=== PATIENT | male | born 1965 | race African-American/Black ===

== ENCOUNTER 2018-11-21 13:58 | Inpatient (IN) | payer BC ==
[2018-11-21] MEDS ORDERED: metroNIDAZOLE 500 MG/100 ML BAG ONE (15:39)
[2018-11-21 15:51] LABS: Hemoglobin 5.1 g/dL (14.0-18.0); Mean Corpuscular Volume 96.9 fL (78.0-98.0); Mean Platelet Volume 11.6 fL (7.4-10.4); Platelet Count 66 thou/uL (130-400); RBC Distribution Width 20.5 % (11.5-14.5); Red Blood Cell (RBC) Count 1.66 mill/uL (4.70-6.10)
[2018-11-21 15:54] LABS: INR-International Normal Ratio 2.1; PTT 39.2 SEC (22.9-36.1); Prothrombin Time 23.6 SEC (12.0-14.7)
[2018-11-21 15:58] LABS: ALT (SGPT) 24 U/L (8-55); AST (SGOT) 103 U/L (5-34); Albumin 1.7 g/dL (3.5-5.0); Alkaline Phosphatase 185 U/L (40-150); Anion Gap 17 mmol/L (10-20); BUN (Urea Nitrogen) 53 mg/dL (8.4-25.7); Calc. Creatinine Clearance 0 mL/min (70-130); Carbon Dioxide 18 mmol/L (22-29); Chloride 111 mmol/L (98-107); Estimated GFR-MDRD 61; Globulin 4.6 g/dL (2.4-3.5); Glucose 99 mg/dL (70-105); Lipase 67 U/L (8-78); Potassium 4.1 mmol/L (3.5-5.1); Protein, Total 6.3 g/dL (6.0-8.3); Sodium 142 mmol/L (136-145)
[2018-11-21 16:11] LABS: #Lymphocytes 1.1 thou/uL (1.20-3.40); #Monocytes 0.5 thou/uL (0.11-0.59); #Neutrophils 5.3 thou/uL (1.40-6.50); %Basophils 0.4 % (0.0-1.0); %Eosinophils 0.1 % (0.0-10.0); %Lymphocytes 15.8 % (21.0-51.0); %Monocytes 7.7 % (0.0-10.0); Anisocytosis SLIGHT = 6-15 cells (100X) (0-5/hpf); Hypochromia MODERATE=16-30 cells (100X) (0-5/hpf); MDiff Complete? YES; Platelet Morphology Comment Appears Decreased
[2018-11-21 17:04] LABS: HBCM Index 0.06 S/CO (0-0.79); HBSAg Index 0.31 S/CO (0-0.99); Hep A IgM AB Non-Reactive (NonReactive); Hep A IgM S/CO 0.27 S/CO (0-0.79); Hep B Surf Ag Non-Reactive S/CO (NonReactive); Hep C IgG Ab Non-Reactive (NonReactive); Hep C Index 0.19 S/CO (0-0.79); Hepatitis B Core IgM Abs Non-Reactive (NonReactive)
--- NOTE | 2018-11-21 17:16 | ULT ---
RIGHT UPPER QUADRANT ULTRASOUND: Date: 11/21/18 INDICATION: History of abdominal pain. FINDINGS: There is cirrhotic morphology of the liver. No focal hepatic lesion is evident. The gallbladder is co ntracted. There is no sonographic Ornelas's sign reported. Common bile duct measured 1.6 mm. Hepatopet al flow is seen within the portal vein. Right kidney measures 10.1 cm in length without evidence of h ydronephrosis. Moderate ascites is seen throughout the stomach. There is fluid-filled and material-fi lled stomach seen within the left upper quadrant of the abdomen. Reportedly, the patient has been NPO for 24 hours. This may reflect a component of gastroparesis. IMPRESSION: 1. Cirrhotic morphology of the liver without evidence of focal hepatic lesion. 2. Moderate ascites. 3. Slightly distended stomach. With report of patient being NPO for 24 hours, findings may reflect s equelae of gastroparesis. POS: ANTWAN
--- NOTE | 2018-11-21 18:00 | PDOC.FPRHP ---
- History of Present Illness Chief Complaint: vomiting/diarrhea History of Present Illness: Mr. Quiñones presents to the ED today for n/v/d for the past 24 hours He reports frequent episodes of non-billious/bloody vomiting and diarrhea. no hematochezia or melena. Reports no sick contacts, prior episodes, or unusual consumption. He denies any fever, SOB, dizziness, syncope, or abdominal pain. In the past he has had abdominal swelling/fluid for which he takes lasix prn. He denies abnormal bruising or bleeding or history of infection. ED Course: 2u PRBCs RUQ GB US Hep panel, FOBT, coags, Lipase, CBC, UA/cx, trop, flu, LA, CMP, BCx DARYL reported as brown stool in rectal vault, no blood or masses. - Allergies/Adverse Reactions Allergies Allergy/AdvReac Type Severity Reaction Status Date / Time No Known Allergies Allergy Verified 11/21/18 23:50 - Home Medications Medication Instructions Recorded Confirmed Type Amlodipine [Norvasc] 5 mg PO DAILY 01/21/16 11/21/18 History Spironolactone [Aldactone] 100 mg PO DAILY PRN 01/21/16 11/21/18 History Cyanocobalamin (Vitamin B-12) 1,000 mcg PO DAILY PRN 11/21/18 11/21/18 History [Vitamin B-12] Ferrous Gluconate [Iron] 240 mg PO DAILY PRN 11/21/18 11/21/18 History - History PMHx: HTN PSHx: FHx: Social: - Review of Systems General: reports: weight/appetite/sleep changes, fatigue. denies: fever/chills Eyes: denies: eye pain, vision changes Respiratory: denies: cough, congestion, shortness of breath, exercise intolerance Cardiovascular: denies: chest pain, palpitation, edema Gastrointestinal: reports: nausea, vomiting, diarrhea. denies: constipation, abdominal pain, GI bleeding Genitourinary: denies: incontinence, dysuria Skin: denies: rashes, lesions Musculoskeletal: denies: pain, tenderness Neurological: denies: numbness, syncope - Vital signs BP: 101/67 HR: 126 RR: 18 Tmax: 98 Pox: 96% on RA Wt: 74kg - Physical Exam Constitutional: NAD, awake, alert and oriented HEENT: normocephalic and atraumatic, no scleral icterus, grossly normal vision, grossly normal hearing, other (dry MM) Neck: supple, trachea midline Chest: no-tender to palpation, no lesions Heart: normal S1/S2, no murmurs/rubs/gallops, pulses present, no edema, other ( tachycardic) Lungs: CTAB, no respiratory distress Abdomen: soft, non-tender, bowel sounds present, no hernias, other (distended, small fluid wave) Musculoskeletal: normal structure, normal tone Neurological: no focal deficit, CN II-XII intact Skin: no rash/lesions, good turgor Heme/Lymphatic: no unusual bruising or bleeding, no purpura, no petechia Psychiatric: normal mood and affect FMR H&P: Results - Labs Result Diagrams: 11/22/18 05:47 11/22/18 05:47 Lab results: WBC 7.0 thou/uL (4.8-10.8) 11/21/18 14:25 Hgb 5.1 g/dL (14.0-18.0) L* 11/21/18 14:25 Hct 16.1 % (42.0-52.0) L 11/21/18 14:25 MCV 96.9 fL (78.0-98.0) 11/21/18 14:25 Plt Count 66 thou/uL (130-400) L 11/21/18 14:25 Neutrophils % 76.0 % (42.0-75.0) H 11/21/18 14:25 Sodium 142 mmol/L (136-145) 11/21/18 14:25 Potassium 4.1 mmol/L (3.5-5.1) 11/21/18 14:25 Chloride 111 mmol/L (98-107) H 11/21/18 14:25 Carbon Dioxide 18 mmol/L (22-29) L 11/21/18 14:25 BUN 53 mg/dL (8.4-25.7) H 11/21/18 14:25 Creatinine 1.48 mg/dL (0.7-1.3) H 11/21/18 14:25 Glucose 99 mg/dL (70-105) 11/21/18 14:25 Lactic Acid 6.4 mmol/L (0.5-2.2) H* 11/21/18 14:25 Calcium 8.0 mg/dL (7.8-10.44) 11/21/18 14:25 Total Bilirubin 6.0 mg/dL (0.2-1.2) H 11/21/18 14:25 AST 103 U/L (5-34) H 11/21/18 14:25 ALT 24 U/L (8-55) 11/21/18 14:25 Alkaline Phosphatase 185 U/L (40-150) H 11/21/18 14:25 CK-MB (CK-2) 4.0 ng/mL (0-6.6) 11/21/18 14:25 Serum Total Protein 6.3 g/dL (6.0-8.3) 11/21/18 14:25 Albumin 1.7 g/dL (3.5-5.0) L 11/21/18 14:25 Lipase 67 U/L (8-78) 11/21/18 14:25 FMR H&P: A/P - Problem List (1) Normocytic anemia Current Visit: Yes Status: Acute Code(s): D64.9 - ANEMIA, UNSPECIFIED (2) Cirrhosis Current Visit: Yes Status: Acute Code(s): K74.60 - UNSPECIFIED CIRRHOSIS OF LIVER (3) Lactic acidosis Current Visit: Yes Status: Acute Code(s): E87.2 - ACIDOSIS (4) Elevated troponin Current Visit: Yes Status: Acute Code(s): R74.8 - ABNORMAL LEVELS OF OTHER SERUM ENZYMES (5) RON (acute kidney injury) Current Visit: Yes Status: Acute Code(s): N17.9 - ACUTE KIDNEY FAILURE, UNSPECIFIED (6) HTN (hypertension) Current Visit: Yes Status: Acute Code(s): I10 - ESSENTIAL (PRIMARY) HYPERTENSION - Plan Normocyctic anemia - GI bleed vs iron deficiency vs chronic disease - asymptomatic, hypotense and tachycardic, continued diarrhea - s/p 2u PRBCs in ED, repeat H&H pending, T&C additional 2u pending result - protonix 40mg IV - GI consult in AM Lactic Acidosis - repeat pending - s/p 2.2 L in ED, give additional L bolus RON - likely 2/2 to hypovolemia - monitor CMP Cirrhosis - Most likely alcohol induced, nodular liver appearence on US, elevated PT/PTT/ INR - negative serologies elevated troponin - most likely demand, downtrending HTN - hx of, hold anti-hypertensive meds - monitor vitals Code: full ppx: none Dispo: admit to IMCU for close monitoring, serial H&H, give PRBCs prn hb<7 FMR H&P: Upper Level - Pertinent history 53M with PMH of alcohol abuse, HTN presents for e valuation of diarrhea of 3 days. He states diarrhea exacerbated by food. His symptom associated with new abd distention and feeling of pressure. His symptom happens intermittently. He specifically denies blood in his stool, vomiting, abd pain, fever or chills, though he reported to ER he did have vomiting and abd pain. Lab in ER found elevated lactate acidosis of 6.4, new normocytic anemia - Hgb 5.1, positive FOBT, indeterminate trop of 0.04, possible RON vs CKD with Cr 1.48 /GFR 61, liver cirrhosis of US with AST 103, Alk phos 185, bili 6.0 and albumin 1.7. Serology for hep Bs antigen neg, hep c antibody neg. So far in ER, has received 30 ml/kg fluid resuscitation, cipro 40mg IV, flagyl 500 mg IV, and additional 1 L fluid. - Pertinent findings Vitals, BP 96/63, pulse 125, temp 97.8, resp 20, O2 96 on RA Gen: Alert, oriented, logical thoughts, not in acute distress HEENT: Normocephalic, hearing and vision grossly intact. Moist appearing mucosal membrane CV: RRR with no apparent m/g/r Resp: CTA bilat, unlabored breathing GI: Distended, soft, no guarding, rigidity or mass palpated. Normoactive bowel. Ext: 1+ pitting edema to mid leavitt. - Plan Date/Time: 11/21/18 6748 I, [He Ly], have evaluated this patient and agree with findings/plan as outlined by internal medicine hospitalist resident. Pertinent changes/additions are listed here. 1. Normocytic anemia secondary to suspected GI bleed - Hgb of 5.1. FOBT positive. Elevated BUN. Tachycardic and mild hypotension. Currently asymptomatic with no active bleeding. - Plan, transfusing 2 PRBC. Will remeasure H/H 4 hours post transfusion. - Will give additional 500 ml LR - Consult GI for possible scope and evaluation - DC abx. No evidence of variceal bleed at this time 2. Cirrhosis - Found incidentally on US. Associated with elevated AST/alk phos, elevated INR , elevated bili, low albumin and hx of alcohol abuse. Hepatitis A/B/C neg. - Plan, consult GI. Consider alcoholic hepatitis/cirrhosis at this time. - When patient GI bleed resolve, would recommend recheck of liver function labs. Shock liver may account for some liver derangement. 3. RON - No previous comparison. Elevated Cr at this time - Plan, fluid and blood resuscitation. Remeasure CMP after due with resuscitation. 4. Indeterminate trop - Not symptomatic at this time. Likely from acute blood loss leading to demand ischemia - Will trend trops. 5. Lactic acidosis - Elevated LA. Likely from poor perfusion with recent suspected blood loss. Do not suspect infection at this time. No fever, abd pain, wbc shift. - Will remeasure after resuscitation. Fluid and blood transfusion. 6. HTN - Chronic issue. Hold HTN meds at this time. Addendum - Attending - Attending Attestation Date/Time: 11/22/18 [id number] I personally evaluated the patient and discussed the management with Dr. Cid and team on 11/21. I agree with and repeated the History, Examination, Assessment and Plan documented above with any addition or exceptions noted below. NAD, resting comfortably and watching TV on my exam. Mentating well. Tachy, regular, 1+ edema. CTAB s w/r/r. BS+, NTTP, distended with what feels like a fluid wave. Labs and imaging reviewed. I believe likely chronic bleed, as no evidence of acute GI loss, with superimposed dehydration. Transfuse initial two units then repeat serial h&h. Volume resuscitate. Consider TTE. PPI BID. I do not feel indication for antibiotic ppx.
[2018-11-21 18:41] LABS: Troponin I 0.028 ng/mL (< 0.028)
[2018-11-21 19:40] LABS: Lactic Acid 8.7 mmol/L (0.5-2.2)
[2018-11-21 19:47] LABS: Troponin I 0.052 ng/mL (< 0.028)
[2018-11-21] MEDS ORDERED: Acetaminophen 325 MG TAB PO PRN (20:09)
[2018-11-21] MEDS ORDERED: Ondansetron ODT 4 MG TAB PO PRN (20:09)
[2018-11-21] MEDS ORDERED: Lactated Ringer's 1,000 ML IV SCH (20:09)
[2018-11-21] MEDS ORDERED: Ondansetron PF 4 MG/2 ML Vial IVP PRN (20:09)
[2018-11-21] MEDS ORDERED: Pantoprazole 40 MG VIAL ONE (20:39)
[2018-11-21] MEDS: Pantoprazole 40 MG VIAL IVP SCH (20:48)
[2018-11-21 22:46] LABS: ALT (SGPT) 22 U/L (8-55); AST (SGOT) 86 U/L (5-34); Albumin 1.4 g/dL (3.5-5.0); Alkaline Phosphatase 139 U/L (40-150); Anion Gap 12 mmol/L (10-20); BUN (Urea Nitrogen) 55 mg/dL (8.4-25.7); Bilirubin, Total 4.8 mg/dL (0.2-1.2); Calc. Creatinine Clearance 0 mL/min (70-130); Calcium 7.2 mg/dL (7.8-10.44); Carbon Dioxide 20 mmol/L (22-29); Chloride 115 mmol/L (98-107); Estimated GFR-MDRD 68; Globulin 3.4 g/dL (2.4-3.5); Glucose 120 mg/dL (70-105); Potassium 4.1 mmol/L (3.5-5.1); Protein, Total 4.8 g/dL (6.0-8.3); Sodium 143 mmol/L (136-145)
[2018-11-21 22:49] LABS: Hemoglobin 5.6 g/dL (14.0-18.0); Mean Corpuscular HGB CONC 31.9 g/dL (32.0-36.0); Mean Corpuscular Hemoglobin 30.7 pg (27.0-31.0); Mean Corpuscular Volume 96.4 fL (78.0-98.0); Mean Platelet Volume 11.3 fL (7.4-10.4); Platelet Count 41 thou/uL (130-400); RBC Distribution Width 17.6 % (11.5-14.5); Red Blood Cell (RBC) Count 1.83 mill/uL (4.70-6.10); White Blood Cell (WBC) Count 6.8 thou/uL (4.8-10.8)
[2018-11-21 23:07] LABS: #Monocytes 0.8 thou/uL (0.11-0.59); #Neutrophils 5.1 thou/uL (1.40-6.50); %Basophils 0.2 % (0.0-1.0); %Lymphocytes 14.2 % (21.0-51.0); %Monocytes 11.2 % (0.0-10.0); %Neutrophils 74.4 % (42.0-75.0); Anisocytosis SLIGHT = 6-15 cells (100X) (0-5/hpf); Hypochromia SLIGHT = 6-15 cells (100X) (0-5/hpf); MDiff Complete? YES; Platelet Morphology Comment Appears Decreased; Target Cells SLIGHT = 2-5 cells (100X) (0-1/hpf)
[2018-11-22] MEDS ORDERED: Cyanocobalamin (Vitamin B-12) 1,000 MCG TAB PO PRN (00:50)
[2018-11-22] MEDS ORDERED: Ferrous Gluconate 324 MG TAB PO PRN (00:50)
[2018-11-22 01:47] LABS: Hemoglobin 5.8 g/dL (14.0-18.0)
--- NOTE | 2018-11-22 05:56 | PDOC.FM ---
- Subjective Subjective: 53 yo male seen at bedside this AM. Patient reports that he doesn't feel as bad as yesterday. Patient is unaware of the severity of his disease process. He asks multiple times if he will be able to go home today. He is counseled that the only safe place for him at the current time is in the hospital. Patient is otherwise agreeable to plan. No other complaints. - Objective Vital Signs & Weight: Vital Signs (12 hours) Temp Pulse Pulse Resp BP BP Pulse Ox 11/22/18 05:49 99.2 F 11/22/18 03:19 99.8 F H 118 H 16 101/56 L 100 11/22/18 02:58 99.0 F 120 H 13 99/61 100 11/21/18 23:25 98.1 F Weight Weight 79.492 kg Most Recent Monitor Data Heart Rate from ECG 110 NIBP 104/66 NIBP BP-Mean 78 Respiration from ECG 17 SpO2 98 I&O: 11/20/18 11/21/18 11/22/18 06:59 06:59 06:59 Intake Total 510 Output Total 200 Balance 310 Result Diagrams: 11/22/18 05:47 11/22/18 05:47 Phys Exam - Physical Examination Constitutional: NAD HEENT: PERRLA, moist MMs, sclera anicteric Respiratory: no wheezing, clear to auscultation bilateral Cardiovascular: no significant murmur Tachycardia Gastrointestinal: soft, non-tender, positive bowel sounds Musculoskeletal: pulses present, edema present 1+ bilaterally Neurological: moves all 4 limbs Psychiatric: normal affect, A&O x 3 Skin: no rash Dx/Plan (1) Normocytic anemia Code(s): D64.9 - ANEMIA, UNSPECIFIED Status: Acute (2) Cirrhosis Code(s): K74.60 - UNSPECIFIED CIRRHOSIS OF LIVER Status: Acute (3) Lactic acidosis Code(s): E87.2 - ACIDOSIS Status: Acute (4) RON (acute kidney injury) Code(s): N17.9 - ACUTE KIDNEY FAILURE, UNSPECIFIED Status: Acute (5) Elevated troponin Code(s): R74.8 - ABNORMAL LEVELS OF OTHER SERUM ENZYMES Status: Acute (6) HTN (hypertension) Code(s): I10 - ESSENTIAL (PRIMARY) HYPERTENSION Status: Acute - Plan Plan: 1. Normocytic anemia secondary to suspected GI bleed - Hgb of 5.1 on admission. FOBT positive. Elevated BUN. Tachycardic and mild hypotension. Currently asymptomatic with no active bleeding. - Current only 3/3 units PRBC. Will remeasure H/H 4 hours post transfusion. - Given total of 4000 ml fluid resuscitation - ED consult GI for possible scope and evaluation 2. Cirrhosis - Found incidentally on US. Associated with elevated AST/alk phos, elevated INR , elevated bili, low albumin and hx of alcohol abuse. Hepatitis A/B/C neg. - Consult GI. Consider alcoholic hepatitis/cirrhosis at this time. - Hepatitis panel negative - Bilirubin 4.4 - AST/ALT 89/21 - INR 2.1 3. Thrombocytopenia - Likely secondary to above 4. RON - No known baseline - Fuid and blood resuscitation - Monitor - 1.31 this AM 5. Indeterminate trop - Not symptomatic at this time. Likely from acute blood loss leading to demand ischemia - Will trend trops 6. Lactic acidosis - Elevated LA. Likely from poor perfusion with recent suspected blood loss. Do not suspect infection at this time. No fever, abd pain, wbc shift. - Fluid and blood transfusion - 3rd value pending at this time 7. HTN - Hold HTN meds at this time. Disposition: Stable, will continue current plan of care and await GI recs. Addendum - Attending - Attending Attestation Date/Time: 11/22/18 0908 I personally evaluated the patient and discussed the management with Dr. Kirby I agree with the History, Examination, Assessment and Plan documented above with any addition or exceptions noted below. Acute GI bleed- probably secondary to upper GI bleed Acute on chronic anemia secondary to above Indeterminate troponin secondary to severe anemia Alcoholic cirrhosis Coagulopathy seconday to cirrhosis Thrombocytopenia probably secondary to hypersplenism -GI to see. Will start octreotide gtt and give a dose of Vit K. Transfuse and additional unit of PRBC.
[2018-11-22 06:03] LABS: Hemoglobin 6.5 g/dL (14.0-18.0)
[2018-11-22 06:21] LABS: Hemoglobin 6.4 g/dL (14.0-18.0); Mean Corpuscular HGB CONC 32.4 g/dL (32.0-36.0); Mean Corpuscular Hemoglobin 30.5 pg (27.0-31.0); Mean Corpuscular Volume 94.2 fL (78.0-98.0); Mean Platelet Volume 10.9 fL (7.4-10.4); Platelet Count 44 thou/uL (130-400); RBC Distribution Width 17.3 % (11.5-14.5); White Blood Cell (WBC) Count 9.5 thou/uL (4.8-10.8)
[2018-11-22 06:24] LABS: ALT (SGPT) 21 U/L (8-55); AST (SGOT) 89 U/L (5-34); Albumin 1.3 g/dL (3.5-5.0); Alkaline Phosphatase 132 U/L (40-150); Anion Gap 11 mmol/L (10-20); BUN (Urea Nitrogen) 62 mg/dL (8.4-25.7); Bilirubin, Total 4.4 mg/dL (0.2-1.2); Calc. Creatinine Clearance 75 mL/min (70-130); Calcium 7.1 mg/dL (7.8-10.44); Carbon Dioxide 20 mmol/L (22-29); Chloride 118 mmol/L (98-107); Estimated GFR-MDRD 70; Globulin 3.5 g/dL (2.4-3.5); Glucose 112 mg/dL (70-105); Protein, Total 4.8 g/dL (6.0-8.3); Sodium 145 mmol/L (136-145)
[2018-11-22 06:27] LABS: #Lymphocytes 1.6 thou/uL (1.20-3.40); #Monocytes 1.2 thou/uL (0.11-0.59); #Neutrophils 6.7 thou/uL (1.40-6.50); %Basophils 0.3 % (0.0-1.0); %Eosinophils 0.3 % (0.0-10.0); %Lymphocytes 16.7 % (21.0-51.0); %Monocytes 12.6 % (0.0-10.0); %Neutrophils 70.1 % (42.0-75.0); Anisocytosis SLIGHT = 6-15 cells (100X) (0-5/hpf); Band 5 % (5-11); Lymphocytes 14 % (21-51); MDiff Complete? YES; Monocytes 12 % (0-10); Neutrophil 69 % (42-75); Nucleated RBC 1 % (0); Platelet Morphology Comment Appears Decreased
[2018-11-22 08:39] LABS: CKMB 8.3 ng/mL (0-6.6)
[2018-11-22] MEDS ORDERED: Phytonadione 10 MG/ML AMP SLOW IVP SCH (09:15)
[2018-11-22] MEDS ORDERED: Octreotide Acetate 50 MCG/ML AMP SLOW IVP SCH (09:15)
[2018-11-22] MEDS ORDERED: Phytonadione 10 MG in Sodium Chloride 0.9% 50 ML IVPB SCH (09:30)
[2018-11-22] MEDS: Octreotide Acetate 1,250 MCG in Sodium Chloride 0.9% 250 ML 250 ML IVPB SCH (10:16)
[2018-11-22] MEDS: Pantoprazole 40 MG VIAL IVP SCH ×2 (10:17→20:28)
[2018-11-22 10:28] LABS: Hemoglobin 7.4 g/dL (14.0-18.0)
--- NOTE | 2018-11-22 14:36 | CON ---
DATE OF CONSULTATION: 11/22/2018 CHIEF COMPLAINT: Abdominal pain, nausea, vomiting, diarrhea. HISTORY OF PRESENT ILLNESS: Mr. Quiñones is a 53-year-old man with a history of alcoholic cirrhosis. He presented to the emergency room with a 2-day history of nausea and vomiting and diarrhea with multiple liquidy stools per day. He states that the stools were dark. Nursing reports that the stools here in the hospital had been black. He has had no bloody emesis. He reports vomiting some brown old food material early this morning. He has had some mild abdominal distention and vague pressure-type discomfort diffusely. His last drink of alcohol was this past Monday. He was found to have severe anemia and was given blood transfusion. GI was consulted to evaluate the anemia and cirrhosis. PAST MEDICAL HISTORY: 1. Alcoholic cirrhosis. Previously autoimmune markers did show an elevated F-actin antibody in January of 2017. Mitochondrial antibody was normal. Iron saturation was not elevated. He has got immunity to hepatitis A. Alpha-1 antitrypsin level was normal. Ceruloplasmin was not low. JEMMA was negative previously. He has had ascites associated with alcoholic hepatitis as well previously. 2. Anemia. He had labs drawn back in 2017 with his previous hospital stay and was found to have a hemoglobin of 5.5, and the patient could not be contacted afterwards to work that up more urgently. PAST SURGICAL HISTORY: Otherwise negative. FAMILY HISTORY: Negative for GI malignancy or cirrhosis. SOCIAL HISTORY: Has ongoing alcohol abuse. No drugs. Remote smoking history. ALLERGIES: NO KNOWN DRUG ALLERGIES. MEDICATIONS: Prior to admission, amlodipine, spironolactone, B12, ferrous gluconate. REVIEW OF SYSTEMS: Negative x10 systems reviewed except as stated in history of present illness. PHYSICAL EXAMINATION: VITAL SIGNS: Temperature 98.8, pulse 110, blood pressure 91/52. GENERAL: He is in no acute distress. He is alert and oriented x3. HEENT: Eyes have no scleral icterus. Oropharynx is clear without lesions. NECK: No cervical or supraclavicular lymphadenopathy. LUNGS: Clear to auscultation bilaterally. HEART: Tachycardic S1, S2. He has 2/6 systolic murmur at the right upper sternal border. ABDOMEN: Minimally distended, soft and nontender. Bowel sounds are present. EXTREMITIES : Trace lower extremity edema. NEUROLOGIC: He has no asterixis on neurological exam. LABORATORY DATA: White blood cell count 9.5, hemoglobin 7.4, platelets 44,000. He has received 2 units transfusion last night, another unit early this morning and he has received another one later this morning. I believe the current hemoglobin of 7.4 was after 3 units. His INR is 2.1. Creatinine 1.31, bilirubin 4.4, AST 89, ALT 21, alkaline phosphatase 132, albumin 1.3, TSH 2.19. Hepatitis C antibody was negative. Hepatitis B surface antigen is negative. IMPRESSION: 1. Decompensated alcoholic cirrhosis. His INR is elevated at 2.1. His platelets are low at 44,000. His bilirubin is elevated at 4.4. Creatinine is elevated at 1.31, albumin is extremely low at 1.3. He did have a mildly elevated F-actin antibody in the past. His globulin is 3.5. 2. Severe anemia, presenting with a hemoglobin of 5.1, status post 3 units transfusion with improvement in his hemoglobin to 7.4. On rectal exam today, he does have scant amount of black melenic appearing stool. 3. Ascites. He will need to be on spontaneous bacterial peritonitis prophylaxis with the possible gastrointestinal bleed. RECOMMENDATIONS: 1. We will plan upper endoscopy to evaluate for varices. 2. Start octreotide drip. 3. Continue proton pump inhibitor. 4. Transfuse as necessary. I would give him 1 pack of platelets at this point prior to endoscopy. 5. He has had chronic anemia in the past and if the upper endoscopy is negative, he will require lower endoscopy for further evaluation. 6. Alcohol cessation is advised. 7. Antibiotics for SBP prophylaxis. Job ID: [id number]
[2018-11-22] MEDS: cefTRIAXone\\ROCEPHIN 1 GM in Sodium Chloride 0.9% 100 ML IVPB SCH (15:06)
[2018-11-22 16:50] LABS: Hemoglobin 8.5 g/dL (14.0-18.0)
[2018-11-22] MEDS: GoLYTELY 4,000 ml Bottle PO SCH (20:19)
--- NOTE | 2018-11-23 01:08 | CON ---
DATE OF CONSULTATION: HISTORY OF PRESENT ILLNESS: Mr. Quiñones is a 53-year-old male, who very quickly admits that he was an extremely heavy drinker for many years. He presented with nausea, vomiting, and diarrhea. He has been transfused. He has no history of being told he had liver disease prior to this admission. He subsequently was admitted to the intermediate care unit. Reviewing Dr. Quiñones's notes, it appears that he has been worked up for cirrhosis in the past. He details the workup in his past medical history. He has also been noted in 2017 to have a hemoglobin as low as 5.5 g. He is a smoker, but does not drink now he says, although he admits he has had something to drink recently. It looks like he has been seen by Dr. Quiñones as an outpatient reviewing some of the medical records. FAMILY HISTORY: Negative for lung disease in early age. REVIEW OF SYSTEMS: Ten-point is otherwise negative. PHYSICAL EXAMINATION: GENERAL: He is in no distress, watching TV, lying flat in bed. VITAL SIGNS: Blood pressure 120/83, heart rate is 100, respiratory rate is 25, and oximetry is 96%. HEENT: Pupils are equal. Sclerae are icteric. Poor dentition. NECK: Supple. No lymphadenopathy. LUNGS: Clear. HEART: Regular rhythm. S1 and S2 are normal. ABDOMEN: Soft with exam findings consistent with fluid wave. EXTREMITIES: With 1+ pedal edema. LABORATORY DATA: Sodium 145, potassium 4, chloride 118, bicarb 20, BUN 62, creatinine 1.31, glucose 112, calcium 7.1, bilirubin is 4.4, AST is 89, ALT 21, albumin is 1.3, and total protein is 4.8. White count is 9.5, hemoglobin 6.4 this morning and 8.5 this afternoon after blood, and platelets 44,000. IMPRESSION: Cirrhosis secondary to heavy alcohol use with ascites, thrombocytopenia, and significant liver synthetic dysfunction as well as hyperbilirubinemia. Appears to be stable at this point in time. His prognosis is obviously quite poor. We will follow up with the other physicians caring for him. Job ID: [id number] This is a 50 minute consult with 50% of time spent coordinating care on unit MTDD
--- NOTE | 2018-11-23 06:02 | PDOC.FM ---
- Subjective Subjective: 53 yo male seen at bedside this AM. Patient states he had no acute events overnight, but didn't get much sleep. He states that he is ready to go home, but will wait to hear what other tests need to be completed. No other complaints. - Objective Vital Signs & Weight: Vital Signs (12 hours) Temp 11/23/18 04:00 98.9 F 11/23/18 00:00 99.0 F 11/22/18 19:35 98.4 F Weight Admit Weight 79.067 kg Weight 79.492 kg Most Recent Monitor Data Heart Rate from ECG 92 NIBP 106/78 NIBP BP-Mean 87 Respiration from ECG 14 SpO2 96 I&O: 11/21/18 11/22/18 11/23/18 06:59 06:59 06:59 Intake Total 510 350 Output Total 200 Balance 310 350 Result Diagrams: 11/23/18 09:04 11/23/18 09:04 Phys Exam - Physical Examination Constitutional: NAD HEENT: moist MMs Respiratory: no wheezing, clear to auscultation bilateral Cardiovascular: RRR, no significant murmur Gastrointestinal: soft, non-tender, no distention, positive bowel sounds Musculoskeletal: pulses present, edema present Neurological: non-focal, normal sensation, moves all 4 limbs Psychiatric: A&O x 3 Skin: no rash Dx/Plan (1) Normocytic anemia Code(s): D64.9 - ANEMIA, UNSPECIFIED Status: Chronic (2) Cirrhosis Code(s): K74.60 - UNSPECIFIED CIRRHOSIS OF LIVER Status: Chronic (3) Lactic acidosis Code(s): E87.2 - ACIDOSIS Status: Acute (4) RON (acute kidney injury) Code(s): N17.9 - ACUTE KIDNEY FAILURE, UNSPECIFIED Status: Acute (5) Elevated troponin Code(s): R74.8 - ABNORMAL LEVELS OF OTHER SERUM ENZYMES Status: Acute (6) HTN (hypertension) Code(s): I10 - ESSENTIAL (PRIMARY) HYPERTENSION Status: Chronic - Plan Plan: 1. Normocytic anemia secondary to suspected GI bleed - Hgb of 5.1 on admission. FOBT positive. Elevated BUN. Tachycardic and mild hypotension. Currently asymptomatic with no active bleeding. - Current given 4/6 units PRBC. - Given total of 4000 ml fluid resuscitation - Hgb this AM 8.6 - Dr. Quiñones, GI, recommends upper and lower endoscopy. 2. Cirrhosis - Found incidentally on US. Associated with elevated AST/alk phos, elevated INR , elevated bili, low albumin and hx of alcohol abuse. Hepatitis A/B/C neg. - Consult GI. Consider alcoholic hepatitis/cirrhosis at this time. - Hepatitis panel negative - Bilirubin 4.4 - AST/ALT 89/21 - INR 2.1 3. Thrombocytopenia - Likely secondary to above - 46 this AM - Will get platelets prior to procedure today per GI. 4. RON - No known baseline - Fluid and blood resuscitation - Monitor 5. Indeterminate trop - Not symptomatic at this time. Likely from acute blood loss leading to demand ischemia - Troponins downtrended - Will repeat EKG and troponins if chest pain re-occurs 6. Lactic acidosis - Elevated LA. Likely from poor perfusion with recent suspected blood loss. Do not suspect infection at this time. No fever, abd pain, wbc shift. - Fluid and blood transfusion - Communication error and third value not repeated on 11/22. - Will check this AM 7. HTN - Hold HTN meds at this time. Disposition: Stable, will continue current plan of care and await GI recs. Addendum - Attending - Attending Attestation Date/Time: 11/23/18 4068 I personally evaluated the patient and discussed the management with Dr. Kirby I agree with the History, Examination, Assessment and Plan documented above with any addition or exceptions noted below. Severe anemia- H/H stable after 4 unit PRBCs. Presumed upper GI bleed- egd/colonoscopy today by Dr. Quiñones. Patient requesting discharge. Will determine after endoscopy results.
[2018-11-23] MEDS: GoLYTELY 4,000 ml Bottle PO SCH (06:49)
[2018-11-23] MEDS: Pantoprazole 40 MG VIAL IVP SCH ×2 (09:11→21:15)
[2018-11-23 09:25] LABS: Hemoglobin 8.6 g/dL (14.0-18.0); Platelet Count 46 thou/uL (130-400)
[2018-11-23 09:32] LABS: Lactic Acid 1.1 mmol/L (0.5-2.2)
[2018-11-23 09:36] LABS: Anion Gap 9 mmol/L (10-20); BUN (Urea Nitrogen) 47 mg/dL (8.4-25.7); Calc. Creatinine Clearance 95 mL/min (70-130); Calcium 7.2 mg/dL (7.8-10.44); Carbon Dioxide 22 mmol/L (22-29); Chloride 113 mmol/L (98-107); Estimated GFR-MDRD Greater than 90; Glucose 86 mg/dL (70-105); Potassium 3.8 mmol/L (3.5-5.1); Sodium 140 mmol/L (136-145)
--- NOTE | 2018-11-23 10:25 | PRG ---
DATE OF SERVICE: 11/23/2018 SUBJECTIVE: Mr. Quiñones has no complaints other than being awaken. He is drinking a bowel prep. OBJECTIVE: VITAL SIGNS: He is afebrile. Blood pressure 118/76, heart rate is 93. LUNGS: Clear. HEART: Regular rhythm. ABDOMEN: Soft. LABORATORY DATA: Hemoglobin stable at 8.6 g this morning. Electrolytes; sodium 140, potassium 3.8, chloride 113, bicarb 22, BUN 47, creatinine 1.03. IMPRESSION: 1. Cirrhosis? gastrointestinal blood loss, for endoscopy today. 2. Hyperchloremic acidosis. 3. His IV fluids probably should be changed to give him some free water. 4. He is on Rocephin at this time. 5. He appears to be stable. Job ID: [id number]
[2018-11-23] MEDS: Octreotide Acetate 1,250 MCG in Sodium Chloride 0.9% 250 ML 250 ML IVPB SCH (12:13)
[2018-11-23] MEDS ORDERED: PROPOFOL 200 MG/20 ML VIAL ONE (13:30)
[2018-11-23] MEDS ORDERED: Lidocaine 1% PF 5 ML VIAL ONE (13:30)
[2018-11-23] MEDS ORDERED: PHENYLEPHRINE-NS 100 MCG/ML 10 ML SYRINGE ONE (13:30)
[2018-11-23 15:11] VITALS: BMI 24.3
[2018-11-23] MEDS: cefTRIAXone\\ROCEPHIN 1 GM in Sodium Chloride 0.9% 100 ML IVPB SCH (18:24)
--- NOTE | 2018-11-23 19:22 | OP ---
DATE OF PROCEDURE: 11/23/2018 PROCEDURES PERFORMED: Esophagogastroduodenoscopy with banding of esophageal varices and colonoscopy with snare polypectomy. PREOPERATIVE DIAGNOSES: Gastrointestinal bleed, presenting with melena and severe anemia and red stools as well. DESCRIPTION OF PROCEDURE: Informed consent was obtained from the patient. He was sedated with total intravenous anesthesia. The bite block was placed and the endoscope was advanced easily to the second portion of the duodenum and retroflexion was performed in the stomach. The esophagus had a large grade 4 varix with a red bleb in the distal portion of the varix. This was banded directly over the area of the bleb with the band ligator. A 2nd band was placed over the large varix a few centimeter above that site as well. He had three other small grade 2 varices, however, these flattened after the banding of the first varix. The most prominent varix at 6 o'clock was banded as well. The large grade 4 varix was present at 12 o'clock. The stomach had portal hypertensive gastropathy in the body and fundus. The stomach was otherwise unremarkable including retroflex views. The pylorus and first and second portions of the duodenum were normal. The patient was turned around. Rectal exam was performed and was normal. He has external hemorrhoids present. The colonoscope was advanced to the cecum, where the ileocecal valve and appendiceal orifice were clearly identified. He had a lot of edema in the left colon related to his ascites. There were three polyps measuring 9 to 10 mm, removed from the hepatic flexure by snare cautery polypectomy. I removed four polyps from the descending colon measuring around 5 mm. Two of these with cold snare and two with hot snare. There was mild diverticulosis in the left colon. Retroflex views in the rectum were unremarkable. IMPRESSION: 1. Large esophageal varices. One column grade 4 varix with a red bleb that appears to be the most likely bleeding source. This was banded x2. There were also two columns of grade 2 varices, which flattened after banding the larger varix. The more prominent of these was also banded with single band. 2. Portal hypertensive gastropathy. 3. Hepatic flexure polyps measuring 9 to 10 mm x3, removed with hot snare. 4. Descending polyps measuring 5 mm. A total of four polyps removed with two by hot snare and two by cold snare. RECOMMENDATIONS: 1. Await histopathology. 2. Repeat EGD in 4 weeks for continued banding as indicated. 3. Continue octreotide drip. 4. Continue antibiotics. 5. Advance diet. Job ID: [id number]
--- NOTE | 2018-11-24 05:59 | PDOC.FM ---
- Subjective Subjective: Feeling well this morning. Had 2 BM overnight which were watery but did not note any blood. Tolerated clear liquids last night well and is feeling quite hungry this morning. He denies any dizziness or other symptoms when getting up to ambulate. - Objective MAR Reviewed: Yes Vital Signs & Weight: Vital Signs (12 hours) Temp 11/24/18 04:00 98.4 F 11/24/18 00:00 98.2 F 11/23/18 20:00 97.8 F Weight Admit Weight 79.067 kg Weight 79.288 kg Most Recent Monitor Data Heart Rate from ECG 97 NIBP 117/76 NIBP BP-Mean 89 Respiration from ECG 21 SpO2 98 I&O: 11/22/18 11/23/18 11/24/18 06:59 06:59 06:59 Intake Total 510 2950 1080 Output Total 200 600 Balance 310 2350 1080 Result Diagrams: 11/24/18 05:32 11/23/18 09:04 Phys Exam - Physical Examination Constitutional: NAD HEENT: moist MMs poor dentition Neck: supple Respiratory: no wheezing, clear to auscultation bilateral Cardiovascular: RRR, no significant murmur Gastrointestinal: soft, non-tender, positive bowel sounds Musculoskeletal: no edema, pulses present Neurological: non-focal, moves all 4 limbs Psychiatric: normal affect, A&O x 3 Skin: normal turgor, cap refill <2 seconds Dx/Plan (1) RON (acute kidney injury) Code(s): N17.9 - ACUTE KIDNEY FAILURE, UNSPECIFIED Status: Acute (2) Elevated troponin Code(s): R74.8 - ABNORMAL LEVELS OF OTHER SERUM ENZYMES Status: Acute (3) Cirrhosis Code(s): K74.60 - UNSPECIFIED CIRRHOSIS OF LIVER Status: Chronic (4) HTN (hypertension) Code(s): I10 - ESSENTIAL (PRIMARY) HYPERTENSION Status: Chronic (5) Normocytic anemia Code(s): D64.9 - ANEMIA, UNSPECIFIED Status: Chronic (6) Acute GI bleeding Code(s): K92.2 - GASTROINTESTINAL HEMORRHAGE, UNSPECIFIED Status: Acute (7) Esophageal varices determined by endoscopy Code(s): I85.00 - ESOPHAGEAL VARICES WITHOUT BLEEDING Status: Acute (8) Colon polyp Code(s): K63.5 - POLYP OF COLON Status: Acute (9) External hemorrhoids Code(s): K64.4 - RESIDUAL HEMORRHOIDAL SKIN TAGS Status: Acute - Plan Plan: 53 yo M who presented with symptomatic anemia 2/2 variceal bleed, now s/p banding 1. Normocytic anemia secondary to variceal bleed - s/p EGD with Dr. Quiñones yesterday afternoon which noted multiple varices ( banded) and colonic polyps (not actively bleeding) as well as external hemorrhoids - Hgb of 5.1 on admission. FOBT positive. Elevated BUN. Tachycardic and mild hypotension. Currently asymptomatic with no active bleeding. - Current given 4 units PRBC. - Given total of 4000 ml fluid resuscitation - Hgb this AM downtrended to 7.9 - Continue octreotide gtt - F/u GI recommendations today, plan to continue to trend H&H, pRBC if indicated - Plan for repeat EGD in 4 weeks 2. Cirrhosis - Found incidentally on US. Associated with elevated AST/alk phos, elevated INR , elevated bili, low albumin and hx of alcohol abuse. Hepatitis A/B/C neg. - GI consulted - Likely alcoholic hepatitis/cirrhosis at this time. - Hepatitis panel negative - Bilirubin 4.4 - AST/ALT 89/21 - INR 2.1 3. Thrombocytopenia - Likely secondary to above - 63 this AM - s/p 6 pk platelets with GI procedure 4. RON, resolved - No known baseline - s/p Fluid and blood resuscitation 5. Indeterminate trop - Not symptomatic at this time. Likely from acute blood loss leading to demand ischemia - Troponins downtrended - Will repeat EKG and troponins if chest pain recurs 6. Lactic acidosis, resolved - Elevated LA. Likely from poor perfusion with recent suspected blood loss. Do not suspect infection at this time. No fever, abd pain, wbc shift. - s/p Fluid and blood resuscitation - Repeat downtrended 7. HTN - Hold HTN meds at this time. Disposition: Stable, will continue current plan of care and await GI recs. Diet: Advance as tolerated Addendum - Attending - Attending Attestation Date/Time: 11/24/18 1310 I personally evaluated the patient and discussed the management with Dr. Ryder I agree with the History, Examination, Assessment and Plan documented above with any addition or exceptions noted below. Acute GI bleed secondary to esophageal varices s/p banding- on octreotide. covering for sbp with rocephin. Anemia secondary to above- h/h stable. No acute bleeding. Patient requesting to go home but will await GI recs.
[2018-11-24 06:14] LABS: #Eosinphils 0.1 thou/uL (0.0-0.7); #Monocytes 0.9 thou/uL (0.11-0.59); #Neutrophils 4.8 thou/uL (1.40-6.50); %Basophils 0.5 % (0.0-1.0); %Eosinophils 1.1 % (0.0-10.0); %Lymphocytes 14.3 % (21.0-51.0); %Neutrophils 71.1 % (42.0-75.0); Hemoglobin 7.9 g/dL (14.0-18.0); Mean Corpuscular HGB CONC 33.4 g/dL (32.0-36.0); Mean Corpuscular Hemoglobin 31.3 pg (27.0-31.0); Mean Corpuscular Volume 93.9 fL (78.0-98.0); Platelet Count 63 thou/uL (130-400); RBC Distribution Width 17.2 % (11.5-14.5); Red Blood Cell (RBC) Count 2.51 mill/uL (4.70-6.10); White Blood Cell (WBC) Count 6.7 thou/uL (4.8-10.8)
[2018-11-24] MEDS: Pantoprazole 40 MG VIAL IVP SCH ×2 (09:53→20:56)
[2018-11-24] MEDS: cefTRIAXone\\ROCEPHIN 1 GM in Sodium Chloride 0.9% 100 ML IVPB SCH (13:40)
[2018-11-24] MEDS: Octreotide Acetate 1,250 MCG in Sodium Chloride 0.9% 250 ML 250 ML IVPB SCH (13:40)
--- NOTE | 2018-11-24 15:11 | PRG ---
DATE OF SERVICE: 11/24/2018 SUBJECTIVE: The patient seems to be doing okay. He remains on octreotide drip. OBJECTIVE: VITAL SIGNS: Temperature is 99.2, pulse 74, blood pressure 113/77, O2 saturation 97%. HEENT: Unremarkable. NECK: No JVD. LUNGS: Clear. CARDIAC: S1, S2. Regular. ABDOMEN: Distended. LABORATORY DATA: White blood cell count 6.7, hematocrit 23.5, and platelet count 63. ASSESSMENT: 1. Cirrhosis. 2. Hyperchloremic acidosis. 3. Anemia. 4. Thrombocytopenia. PLAN: The patient continues on octreotide. He will stay on it as long as GI feels fit. There are no acute pulmonary/critical care issues at this time. Job ID: [id number]
[2018-11-24] MEDS ORDERED: Octreotide Acetate 1,250 MCG in Sodium Chloride 0.9% 250 ML 250 ML IVPB SCH (15:45)
--- NOTE | 2018-11-24 18:20 | PRG ---
DATE OF SERVICE: 11/24/2018 SUBJECTIVE: Mr. Quiñones is tolerating full liquids well. He felt somewhat distended eating and did not wish to advance to a regular diet quite yet. He has no significant chest pain from his varices banding. He had a small bowel movement with some blackish stool per his report. OBJECTIVE: VITAL SIGNS: Temperature is 98.6, blood pressure 90/61, pulse 91. GENERAL: He is in no acute distress. Alert and oriented x3. EYES: Have no scleral icterus. LUNGS: Clear to auscultation bilaterally. HEART: Regular rate and rhythm without murmur. ABDOMEN: Soft, nontender, nondistended. Bowel sounds present. EXTREMITIES: No lower extremity edema. LABORATORY DATA: White blood cell count 6.7, hemoglobin 7.9, platelets 63, creatinine 1.03. IMPRESSION: 1. Large esophageal varices, presenting with bleed. Status post banding of a large grade 4 varix as well as banding of a grade 2 varix. 2. End-stage liver disease, decompensated. 3. Ascites, on SBP prophylaxis in light of the GI bleed. 4. Anemia of acute blood loss. RECOMMENDATIONS: 1. We will wean off the octreotide drip tomorrow morning. 2. Continue proton pump inhibitor, can be given orally. 3. Alcohol cessation. 4. Discharge home is anticipated for tomorrow morning. Job ID: [id number]
[2018-11-25 05:20] LABS: Band 1 % (5-11); Eosinophils 3 % (0-10); Hemoglobin 7.4 g/dL (14.0-18.0); Lymphocytes 20 % (21-51); MDiff Complete? YES; Mean Corpuscular HGB CONC 32.6 g/dL (32.0-36.0); Mean Corpuscular Hemoglobin 31.8 pg (27.0-31.0); Mean Corpuscular Volume 97.7 fL (78.0-98.0); Mean Platelet Volume 10.4 fL (7.4-10.4); Monocytes 12 % (0-10); Neutrophil 63 % (42-75); Platelet Count 52 thou/uL (130-400); Platelet Morphology Comment Appears Decreased; RBC Distribution Width 18.3 % (11.5-14.5); RBC Morphology Normal; Reactive Lymphocytes 1 % (0-10); Red Blood Cell (RBC) Count 2.34 mill/uL (4.70-6.10); White Blood Cell (WBC) Count 6.2 thou/uL (4.8-10.8)
--- NOTE | 2018-11-25 06:21 | PDOC.FM ---
- Subjective Subjective: Feeling well this morning. Anxious to go home. He reports he had 1 small dark bowel movement overnight. Tolerated full liquids though nursing report he hardly ate anything. We discussed his downtrending Hgb today and he is agreeable to transfusion. Discussed r/b/a including transfusion reaction and he understands and wishes to proceed. - Objective MAR Reviewed: Yes Vital Signs & Weight: Vital Signs (12 hours) Temp Pulse Ox 11/25/18 04:00 99.1 F 11/25/18 00:00 99.1 F 11/24/18 20:00 97 11/24/18 19:08 99.3 F Weight Admit Weight 79.067 kg Weight 79.923 kg Most Recent Monitor Data Heart Rate from ECG 86 NIBP 90/50 NIBP BP-Mean 63 Respiration from ECG 18 SpO2 96 I&O: 11/23/18 11/24/18 11/25/18 06:59 06:59 06:59 Intake Total 2950 2400 2655 Output Total 600 400 750 Balance 2350 2000 1905 Result Diagrams: 11/25/18 03:55 11/23/18 09:04 Phys Exam - Physical Examination Constitutional: NAD HEENT: moist MMs Neck: supple Respiratory: no wheezing, clear to auscultation bilateral Cardiovascular: RRR, no significant murmur Gastrointestinal: soft, non-tender, positive bowel sounds midly distended, same or slightly improved from yesterday Musculoskeletal: no edema, pulses present Neurological: non-focal, moves all 4 limbs Psychiatric: normal affect, A&O x 3 Skin: no rash, normal turgor Dx/Plan (1) RON (acute kidney injury) Code(s): N17.9 - ACUTE KIDNEY FAILURE, UNSPECIFIED Status: Acute (2) Elevated troponin Code(s): R74.8 - ABNORMAL LEVELS OF OTHER SERUM ENZYMES Status: Acute (3) Cirrhosis Code(s): K74.60 - UNSPECIFIED CIRRHOSIS OF LIVER Status: Chronic (4) HTN (hypertension) Code(s): I10 - ESSENTIAL (PRIMARY) HYPERTENSION Status: Chronic (5) Normocytic anemia Code(s): D64.9 - ANEMIA, UNSPECIFIED Status: Chronic (6) Acute GI bleeding Code(s): K92.2 - GASTROINTESTINAL HEMORRHAGE, UNSPECIFIED Status: Acute (7) Esophageal varices determined by endoscopy Code(s): I85.00 - ESOPHAGEAL VARICES WITHOUT BLEEDING Status: Acute (8) Colon polyp Code(s): K63.5 - POLYP OF COLON Status: Acute (9) External hemorrhoids Code(s): K64.4 - RESIDUAL HEMORRHOIDAL SKIN TAGS Status: Acute - Plan Plan: 53 yo M who presented with symptomatic anemia 2/2 variceal bleed, now s/p banding 1. Normocytic anemia secondary to variceal bleed - s/p EGD with Dr. Quiñones Monday afternoon which noted multiple varices (banded) and colonic polyps (not actively bleeding) as well as external hemorrhoids - Hgb of 5.1 on admission. FOBT positive. Elevated BUN. Tachycardic and mild hypotension. Currently asymptomatic with no active bleeding. - Current given 4 units PRBC. - Given total of 4000 ml fluid resuscitation - Hgb this AM downtrended to 7.4 from 7.9 yesterday - s/p octreotide gtt - F/u GI recommendations today, Dr. Quiñones recommended 2u pRBC if Hgb < 7.5 - Plan for repeat EGD in 4 weeks 2. Cirrhosis - Found incidentally on US. Associated with elevated AST/alk phos, elevated INR , elevated bili, low albumin and hx of alcohol abuse. Hepatitis A/B/C neg. - GI consulted - Likely alcoholic hepatitis/cirrhosis at this time. - Hepatitis panel negative - Bilirubin 4.4 - AST/ALT 89/21 - INR 2.1 3. Thrombocytopenia - Likely secondary to above - 52 this AM - s/p 6 pk platelets with GI procedure - Monitor, no feasible tx available per Dr. Quiñones 4. RON, resolved - No known baseline - s/p Fluid and blood resuscitation 5. Indeterminate trop - Not symptomatic at this time. Likely from acute blood loss leading to demand ischemia - Troponins downtrended - Will repeat EKG and troponins if chest pain recurs 6. Lactic acidosis, resolved - Likely from poor perfusion with recent suspected blood loss. Do not suspect infection at this time. No fever, abd pain, wbc shift. - s/p Fluid and blood resuscitation - Repeat downtrended 7. HTN - Hold HTN meds at this time. Disposition: Guarded, likely will require transfusion this a.m. Diet: Advance as tolerated Addendum - Attending - Attending Attestation Date/Time: 11/25/18 1109 I personally evaluated the patient and discussed the management with Dr. Ryder. I agree with the History, Examination, Assessment and Plan documented above with any addition or exceptions noted below. Transfuse 2 units this am. Off octreotide this morning. Continue to watch for recurrent bleeding and d/c when cleared by GI.
[2018-11-25] MEDS: Pantoprazole 40 MG VIAL IVP SCH ×2 (09:21→21:04)
--- NOTE | 2018-11-25 12:02 | PRG ---
DATE OF SERVICE: 11/25/2018 SUBJECTIVE: He is currently receiving a blood transfusion. He is in no distress. OBJECTIVE: VITAL SIGNS: Temperature 99.2, pulse 88, and blood pressure 114/65. HEENT: Unremarkable. NECK: No adenopathy or JVD. LUNGS: Clear. CARDIAC: S1 and S2, regular. ABDOMEN: Somewhat protuberant. EXTREMITIES: No edema. LABORATORY DATA: White blood cell count 6.2, hematocrit 22.8, and platelet count 52. Sodium 140, potassium 3.8, chloride 113, CO2 of 22, BUN 47, creatinine 1.0, glucose 86. ASSESSMENT: 1. Cirrhosis. 2. Thrombocytopenia/anemia. PLAN: The patient is receiving transfusion, stable otherwise from a critical care standpoint. Job ID: [id number]
[2018-11-25 14:48] VITALS: BP 108/71
[2018-11-25] MEDS: cefTRIAXone\\ROCEPHIN 1 GM in Sodium Chloride 0.9% 100 ML IVPB SCH (14:48)
--- NOTE | 2018-11-25 16:03 | PRG ---
DATE OF SERVICE: 11/25/2018 SUBJECTIVE: Mr. Quiñones had a brown stool today. He has just been taking liquids but is ready to try solid diet now. He has no abdominal pain. OBJECTIVE: VITAL SIGNS: Temperature 98.3, blood pressure 108/71, pulse 87. GENERAL: He is in no acute distress. He is alert and oriented x3. LUNGS: Clear to auscultation bilaterally. HEART: Regular rate and rhythm without murmur. ABDOMEN: Soft, mild distention without guarding. Bowel sounds are present. EXTREMITIES: No lower extremity edema. IMPRESSION: 1. Esophageal varices with bleeding, status post banding. 2. End-stage liver disease. 3. Ascites, on SBP prophylaxis. 4. Anemia of acute blood loss. His hemoglobin did trend down today and he has received 2 units of transfusion today. RECOMMENDATIONS: 1. Advance his diet to a low-sodium diet. 2. Recheck hemoglobin tomorrow to evaluate response to transfusion. 3. I would anticipate discharge home tomorrow. Job ID: [id number]
[2018-11-26 05:09] LABS: Band 3 % (5-11); Eosinophils 2 % (0-10); Hemoglobin 9.5 g/dL (14.0-18.0); Lymphocytes 13 % (21-51); MDiff Complete? YES; Mean Corpuscular HGB CONC 32.9 g/dL (32.0-36.0); Mean Corpuscular Hemoglobin 31.4 pg (27.0-31.0); Mean Corpuscular Volume 95.5 fL (78.0-98.0); Metamyelocyte 1 % (0-0); Monocytes 15 % (0-10); Neutrophil 66 % (42-75); Platelet Count 48 thou/uL (130-400); Platelet Morphology Comment Appears Decreased; RBC Distribution Width 16.8 % (11.5-14.5); Red Blood Cell (RBC) Count 3.01 mill/uL (4.70-6.10); White Blood Cell (WBC) Count 5.8 thou/uL (4.8-10.8)
--- NOTE | 2018-11-26 06:12 | PDOC.FM ---
- Subjective Subjective: This morning patient states he is feeling well. Tolerated solids yesterday. He denies hematemesis or blood in the stool. He has been able to ambulate without difficulty. Mild abdominal distension but no pain per patient. - Objective Vital Signs & Weight: Vital Signs (12 hours) Temp 11/26/18 04:00 98.2 F 11/26/18 00:00 99.2 F 11/25/18 19:45 98.8 F Weight Admit Weight 79.067 kg Weight 79.923 kg Most Recent Monitor Data Heart Rate from ECG 90 NIBP 121/72 NIBP BP-Mean 88 Respiration from ECG 13 SpO2 97 I&O: 11/24/18 11/25/18 11/26/18 06:59 06:59 06:59 Intake Total 2400 2655 820 Output Total 400 750 800 Balance 1999 1905 20 Result Diagrams: 11/26/18 03:52 11/23/18 09:04 Phys Exam - Physical Examination Constitutional: NAD HEENT: moist MMs, TM's clear Respiratory: no wheezing, clear to auscultation bilateral Cardiovascular: RRR, no significant murmur Gastrointestinal: soft, non-tender, positive bowel sounds Mild distension, no fluid wave Musculoskeletal: no edema, pulses present Neurological: non-focal, moves all 4 limbs Psychiatric: normal affect, A&O x 3 Skin: no rash, cap refill <2 seconds Dx/Plan (1) Acute GI bleeding Code(s): K92.2 - GASTROINTESTINAL HEMORRHAGE, UNSPECIFIED Status: Acute (2) Esophageal varices determined by endoscopy Code(s): I85.00 - ESOPHAGEAL VARICES WITHOUT BLEEDING Status: Acute (3) Cirrhosis Code(s): K74.60 - UNSPECIFIED CIRRHOSIS OF LIVER Status: Chronic (4) Normocytic anemia Code(s): D64.9 - ANEMIA, UNSPECIFIED Status: Chronic - Plan Plan: 53 yo M who presented with symptomatic anemia 2/2 variceal bleed, now s/p banding # Normocytic anemia secondary to variceal bleed - s/p EGD with Dr. Quiñones Monday which noted multiple varices (banded) and colonic polyps (not actively bleeding) as well as external hemorrhoids - Hgb of 5.1 on admission. FOBT positive. Elevated BUN. Tachycardic and mild hypotension. Currently asymptomatic with no active bleeding. - Current given 6 units PRBC, 6pk of platelets. - Given total of 4000 ml fluid resuscitation - s/p octreotide gtt - GI ok w/ d/c today - Plan for repeat EGD in 4 weeks # Cirrhosis - Found incidentally on US. Associated with elevated AST/alk phos, elevated INR , elevated bili, low albumin and hx of alcohol abuse. Hepatitis A/B/C neg. - follow up with GI - Likely alcoholic hepatitis/cirrhosis at this time. - Hepatitis panel negative - Bilirubin 4.4 - AST/ALT 89/21 - INR 2.1 # Thrombocytopenia - Likely secondary to above - 48 this AM - s/p 6 pk platelets with GI procedure - Monitor, no feasible tx available per Dr. Quiñones # RON, resolved - No known baseline - s/p Fluid and blood resuscitation # Indeterminate trop - Not symptomatic at this time. Likely from acute blood loss leading to demand ischemia - Troponins downtrended - Will repeat EKG and troponins if chest pain recurs # Lactic acidosis, resolved - Likely from poor perfusion with recent suspected blood loss. Do not suspect infection at this time. No fever, abd pain, wbc shift. - s/p Fluid and blood resuscitation - Repeat downtrended # HTN - home on propranolol Disposition: stable, d/c today Diet: solids yesterday Addendum - Attending - Attending Attestation Date/Time: 11/26/18 8129 I personally evaluated the patient and discussed the management with Dr. Barrios. I agree with the History, Examination, Assessment and Plan documented above with any addition or exceptions noted below. Patient doing well today. Tolerating diet without issue. Hgb stable and responded appropriately to 2 unit PRBC transfusion yesterday. Normal BM and no evidence of active bleeding. Await final GI recs but likely discharge later today.
[2018-11-26] MEDS: Pantoprazole 40 MG VIAL IVP SCH (08:29)
[2018-11-26 11:11] VITALS: TEMP 98.2
--- NOTE | 2018-11-27 03:07 | DIS ---
DATE OF ADMISSION: 11/21/2018 DATE OF DISCHARGE: 11/26/2018 RESIDENT: Dr. Dmitriy Barrios. CONSULT: Gastroenterology, Dr. Quiñones. PROCEDURES: Esophagogastroduodenoscopy showed large esophageal varices, grade 4 varix and two columns of grade 2 varices banded. PRIMARY DIAGNOSIS: Upper gastrointestinal bleed, esophageal bleed. SECONDARY DIAGNOSES: 1. Normocytic anemia. 2. Cirrhosis. 3. Thrombocytopenia. 4. Acute kidney injury. 5. Lactic acidosis, resolved. 6. Hypertension. DISCHARGE MEDICATIONS: 1. Protonix 40 mg b.i.d. for 30 days. 2. Propranolol 10 mg b.i.d. for 30 days. 3. Iron 25 mg daily. 4. Spironolactone 100 mg daily. DISCONTINUED MEDICATIONS: None. HISTORY OF PRESENT ILLNESS/HOSPITAL COURSE: This is a 53-year-old gentleman who presented to the ER, complaining of nausea and vomiting for the past 24 hours. He reported frequent episodes of nonbloody vomiting and diarrhea. He denied any fever, shortness of breath, dizziness, or syncope. He had a past history of alcohol abuse. He denied blood in stool or vomiting, abdominal pain, fevers, or chills. In the ER, he was found to have a hemoglobin of 5.1 and a positive FOPT. EGD showed varices as mentioned above. The patient was fluid resuscitated and ultimately required 6 units of PRBCs and one 6-pack of platelets during the hospitalization. The patient was on octreotide drip and also received Protonix IV. The patient was found to be in cirrhosis incidentally on ultrasound. He had an elevated INR at 2.1 and history of alcohol abuse. Thrombocytopenia ranging around 50 throughout the stay. Hepatitis A, B, and C were negative. The patient will follow up with GI for followup on this. The patient was discharged home on propanolol 10 mg b.i.d. as well as Protonix 40 mg b.i.d. for prophylaxis secondary to esophageal varices. The patient was counseled to return to the ER if he has any episodes of bloody vomiting or notices dark stools. The patient is instructed to follow up with his PCP in 3 days and GI in 2 weeks. The patient will have a repeat EGD in 1 month. DISPOSITION: Stable. DISCHARGE INSTRUCTIONS: LOCATION: Home. DIET: Regular. ACTIVITY: As tolerated. FOLLOWUP: Follow up with Dr. Nettles in 3 days. Please check the patient's blood pressure as it has been running in the 120s over 80s and we are starting him on propanolol low dose for prophylaxis secondary to esophageal varices. The patient will follow up in [address] Quiñones and then he needs another EGD in 1 month. Job ID: [id number]
== END 2018-11-26 13:01 | disposition home or self-care (01) | DRG 432 ==
LOC: ERS 13:58 → ERHOLD 17:20 → IMCU/EMU 23:10
PROVIDERS: ADMIT Emergency Medicine; ATTEND Emergency Medicine
PROC: 06L38CZ Occlusion of Esophageal Vein with Extraluminal Device, Via Natural or Artificial Opening Endoscopic (ICD-10-PCS; principal; 2018-11-23)
PROC: 0DBM8ZX Excision of Descending Colon, Via Natural or Artificial Opening Endoscopic, Diagnostic (ICD-10-PCS; 2018-11-23)
PROC: 0DBL8ZX Excision of Transverse Colon, Via Natural or Artificial Opening Endoscopic, Diagnostic (ICD-10-PCS; 2018-11-23)
PROC: 30233N1 Transfusion of Nonautologous Red Blood Cells into Peripheral Vein, Percutaneous Approach (ICD-10-PCS; 2018-11-23)
DX: K70.31 Alcoholic cirrhosis of liver with ascites (principal); I85.11 Secondary esophageal varices with bleeding; K76.6 Portal hypertension; E87.2 Acidosis; N17.9 Acute kidney failure, unspecified; D62 Acute posthemorrhagic anemia; K31.89 Other diseases of stomach and duodenum; D12.4 Benign neoplasm of descending colon; D12.3 Benign neoplasm of transverse colon; I10 Essential (primary) hypertension; D69.59 Other secondary thrombocytopenia; E86.0 Dehydration; R74.8 Abnormal levels of other serum enzymes; K64.4 Residual hemorrhoidal skin tags
CPT/HCPCS: 36415; 36430; 76705; 80048; 80053; 80074; 82274; 82553; 83605; 83690; 84443; 84484; 85014; 85018; 85025; 85049; 85060; 85610; 85730; 86850; 86900; 86901; 87040; 87804; 88305; 96365; 96367; C9113; J0696; J0744; J2001; J2354; J2704; J3430; J7050; P9016; P9035